=== PATIENT | female | born 1985 | race American Indian/Alaskan Native ===

== ENCOUNTER 2021-04-26 16:41 | Emergency (ER) | payer OTHER ==
[2021-04-26 16:50] VITALS: BP 184/107
[2021-04-26] MEDS ORDERED: TETANUS,DIPH,PERTUSS(ACELL) VACCINE 0.5 ML SYRINGE IM ONE (17:08)
--- NOTE | 2021-04-26 17:47 | Emergency Department Report ---
ED Laceration HPI - HPI Chief Complaint: Extremity Injury, Upper Stated Complaint: RIGHT HAND FINGER LAC Time Seen by Provider: 04/26/21 16:53 Occurred When: Today Location: Upper Extremity Severity: mild Tetanus Status: Not up to Date Laceration Symptoms: Yes Pain, No Foreign Body Sensation, No Numbness, No Weakness Other History: This is a 35-year-old female nontoxic, well nourished in appearance, no acute signs of distress presents to the ED with c/o of right distal middle finger laceration that occurred today at work prior to arrival. 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 Patient denies decreased sensation or range of motion. Patient stated bleeding is under control. Denies any numbness, tingling, fever, chills, nausea, vomiting, chest pain, shortness of breath, headache or stiff neck. Patient denies any allergies to significant past medical history. Patient is that he is not up-to-date with tetanus. ED Review of Systems ROS: Stated complaint: RIGHT HAND FINGER LAC Other details as noted in HPI Comment: All other systems reviewed and negative Constitutional: denies: chills, fever Eyes: denies: eye pain, eye discharge, vision change ENT: denies: ear pain, throat pain Respiratory: denies: cough, shortness of breath, wheezing Cardiovascular: denies: chest pain, palpitations Endocrine: no symptoms reported Gastrointestinal: denies: abdominal pain, nausea, diarrhea Genitourinary: denies: urgency, dysuria, discharge Musculoskeletal: denies: back pain, joint swelling, arthralgia Skin: denies: rash, lesions Neurological: denies: headache, weakness, paresthesias Psychiatric: denies: anxiety, depression Hematological/Lymphatic: denies: easy bleeding, easy bruising ED Past Medical Hx - Past Medical History Hx Hypertension: Yes Hx Congestive Heart Failure: No Hx Diabetes: Yes Hx Asthma: Yes Hx COPD: No Hx HIV: No - Surgical History Additional Surgical History: 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 - Social History Smoking Status: Current Some Day Smoker - Medications Home Medications: Home Medications Medication Instructions Recorded Confirmed Last Taken Type Acetaminophen [Acetaminophen TAB] 650 mg PO Q4H PRN #15 tablet 01/08/14 Unknown Rx Metoprolol [Lopressor TAB] 25 mg PO BID #60 tablet 01/08/14 Unknown Rx Potassium Chloride [K-Dur] 20 meq PO QDAY #30 tablet 01/08/14 Unknown Rx amLODIPine 5 mg PO QDAY #30 tablet 01/08/14 Unknown Rx lisinopriL [Zestril TAB] 10 mg PO QDAY #30 tablet 01/08/14 Unknown Rx metFORMIN [Glucophage] 500 mg PO BID #60 tablet 01/08/14 Unknown Rx Laceration Physical Exam - Exam General: Vital signs noted. No distress. Alert and acting appropriately. Wound Length (cm): 1 (Right middle finger superficial) Laceration Location: Upper Extremity Laceration Exam: Yes Normal Distal CMS, No Foreign Body, No Exposed Tendon, Vessel, or Nerve, No Tendon Injury ED Course Vital Signs 04/26/21 16:46 Temperature 98.4 F Pulse Rate 75 Respiratory 20 Rate Blood Pressure 184/107 [Right] O2 Sat by Pulse 100 Oximetry - Reevaluation(s) Reevaluation #1: 04/26/21 17:47 Patient is speaking in full sentences with no signs of distress noted. - Laceration /Wound Repair Right Finger Wound Location: upper extremity (Right distal middle finger) Wound Length (cm): 1 Wound's Depth, Shape: superficial Wound Explored: clean Irrigated w/ Saline (ccs): 40 Wound Repaired With: Dermabond Layer Closure?: No Sterile Dressing Applied?: Yes Progress: Under sterile field, I used Betadine to clean the area. I then used 40 mL of normal saline to flush the area. I then used Dermabond to approximate the laceration. I then applied a sterile 4 x 4 with tape. Minimal bleeding noted but is under control. Patient tolerated procedure well with no signs of distress. ED Medical Decision Making - Radiology Data [facility] [address] [place] [address] XRay Report Signed Patient: MASON MAYNARD MR#: [id number] : 1985 Acct:[id number] Age/Sex: 35 / F ADM Date: 04/26/21 Loc: ED Attending Dr: Ordering Physician: BETTY JIMÉNEZ NP Date of Service: 04/26/21 Procedure(s): XR finger(s) 2+V RT Accession Number(s): [id number] cc: BETTY JIMÉNEZ NP Fluoro Time In Minutes: XR finger(s) 2+V RT INDICATION / CLINICAL INFORMATION: lac COMPARISON: None available. FINDINGS: BONES / JOINT(S): No acute fracture or subluxation. 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 SOFT TISSUES: No significant abnormality. No soft tissue gas or radiopaque foreign body. ADDITIONAL FINDINGS: None. IMPRESSION: No acute osseous findings of the right hand. No soft tissue gas or radiopaque foreign body. Signer Name: Yaneth Hall MD Signed: 04/26/2021 5:48 PM Workstation Name: [id number] Transcribed By: DELROY Dictated By: YANETH HALL MD Electronically Authenticated By: YANETH HALL MD Signed Date/Time: 04/26/211747 DD/ 46 TD/TT: - Medical Decision Making This is a 35-year-old female that presents with laceration. Patient is stable and was examined by me. The laceration Dermabond has been performed and has been performed and patient tolerated well. A sterile dressing has been applied. Patient is notified of the x-ray results with no questions noted by the patient. Patient was educated on proper wound care. Patient was instructed to refer to Follow-up with a primary care doctor in 3-5 days or if symptoms worsen and continue return to emergency room as soon as possible. At time of discharge, the patient does not seem toxic or ill in appearance. No acute signs of distress noted. Patient agrees to discharge treatment plan of care. No fur ther questions noted by the patient. Critical care attestation.: If time is entered above; I have spent that time in minutes in the direct care of this critically ill patient, excluding procedure time. ED Disposition Clinical Impression: Laceration of right middle finger w/o foreign body w/o damage to nail Qualifiers: Encounter type: initial encounter Qualified Code(s): S61.212A - Laceration without foreign body of right middle finger without damage to nail, initial encounter Disposition: HOME / SELF CARE / HOMELESS Is pt being admited?: No Does the pt Need Aspirin: No Condition: Stable Instructions: Laceration Care, Adult Additional Instructions: Follow-up with a primary care doctor in 3-5 days or if symptoms worsen and continue return to emergency room as soon as possible. Referrals: PRIMARY MD DORIS [Primary Care Provider] - 3-5 Days ARI DUPREE MD [Staff Physician] - 3-5 Days Time of Disposition: 18:12
--- NOTE | 2021-04-26 17:52 | XRay Report ---
XR finger(s) 2+V RT INDICATION / CLINICAL INFORMATION: lac COMPARISON: None available. FINDINGS: BONES / JOINT(S): No acute fracture or subluxation. 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 SOFT TISSUES: No significant abnormality. No soft tissue gas or radiopaque foreign body. ADDITIONAL FINDINGS: None. IMPRESSION: No acute osseous findings of the right hand. No soft tissue gas or radiopaque foreign body. Signer Name: Eddie Hall MD Signed: 04/26/2021 5:48 PM Workstation Name: [id number]
== END 2021-04-26 18:20 | disposition home or self-care (01) ==
LOC: ED 16:41
DX: S61.212A Laceration without foreign body of right middle finger without damage to nail, initial encounter (principal); I10 Essential (primary) hypertension; J45.909 Unspecified asthma, uncomplicated; F17.200 Nicotine dependence, unspecified, uncomplicated; Z98.890 Other specified postprocedural states; W45.8XXA Other foreign body or object entering through skin, initial encounter; W22.8XXA Striking against or struck by other objects, initial encounter; Y93.89 Activity, other specified; Y92.89 Other specified places as the place of occurrence of the external cause; Y99.8 Other external cause status
CPT/HCPCS: 90471; 90715; 96372; 99283